=== PATIENT | female | born 1975 | race Caucasian/White ===

== ENCOUNTER 2019-02-09 03:30 | Inpatient (IN) | payer OTHER ==
[2019-02-09] MEDS ORDERED: ALBUTEROL/IPRATROPIUM (NEB) 3 ML AMP HHN (05:00)
[2019-02-09] MEDS ORDERED: LORAZEPAM 2 MG INJ IV (05:00)
[2019-02-09] MEDS ORDERED: NITROGLYCERIN (SL) 0.4 MG TAB SL (05:00)
[2019-02-09] MEDS ORDERED: DOCUSATE SODIUM 100 MG CAP PO (05:00)
[2019-02-09] MEDS ORDERED: NACL 0.9% 3 ML SYG IV (05:00)
[2019-02-09] MEDS ORDERED: hydrALAzine 20 MG INJ IV (05:00)
[2019-02-09] MEDS: PIPER-TAZO 3.375 GM IV (PMX) 100 ML IVPB (05:08)
[2019-02-09] MEDS: ACETAMINOPHEN 325 MG TAB PO (05:09)
[2019-02-09] MEDS: ONDANSETRON 4 MG INJ IV ×2 (05:09→16:25)
[2019-02-09] MEDS: SOD CHLORIDE 0.9% 1,000 ML IV ×3 (05:09→16:21)
[2019-02-09 06:45] LABS: LACTIC ACID 0.9 mmol/L (0.5-2.0)
[2019-02-09 07:21] LABS: FREE T4 (FREE THYROXINE) 0.85 ng/dl (0.64-1.79)
[2019-02-09 09:41] LABS: ADD MAN DIFF? NO
[2019-02-09] MEDS: HEPARIN 5,000 UNIT/1 ML VIAL SC ×2 (09:42→21:35)
[2019-02-09 09:47] LABS: WHITE BLOOD COUNT 15.2 10^3/ul (4.8-10.8)
[2019-02-09 09:47] LABS: BASOPHILS % 0.2 % (0.0-2.0); EOSINOPHILS # 0.1 10^3/ul (0.0-0.5); EOSINOPHILS % 0.5 % (0.0-7.0); HEMATOCRIT 36.5 % (37.0-47.0); HEMOGLOBIN 11.7 g/dl (12.0-16.0); LYMPHOCYTES # 1.7 10^3/ul (0.8-2.9); LYMPHOCYTES % 11.3 % (15.0-51.0); MEAN CORPUSCULAR HEMOGLOBIN 29.3 pg (29.0-33.0); MEAN CORPUSCULAR HGB CONC 32.1 g/dl (32.0-37.0); MEAN CORPUSCULAR VOLUME 91.5 fl (82.0-101.0); MEAN PLATELET VOLUME 10.3 fl (7.4-10.4); MONOCYTE # 0.8 10^3/ul (0.3-0.9); MONOCYTES % 5.3 % (0.0-11.0); NEUTROPHIL # 12.5 10^3/ul (1.6-7.5); NEUTROPHILS % 82.2 % (39.0-77.0); PLATELET COUNT 204 10^3/UL (140-415); RED BLOOD COUNT 3.99 10^6/ul (4.20-5.40); RED CELL DISTRIBUTION WIDTH 12.7 % (11.5-14.5)
[2019-02-09 10:02] LABS: ALANINE AMINOTRANSFERASE 26 IU/L (13-69); ALBUMIN 3.4 g/dl (3.3-4.9); ALBUMIN/GLOBULIN RATIO 1.17; ALKALINE PHOSPHATASE 45 IU/L (42-121); ANION GAP 7 (5-13); ASPARTATE AMINO TRANSFERASE 18 IU/L (15-46); BLOOD UREA NITROGEN 9 mg/dl (7-20); CARBON DIOXIDE 24 mmol/L (21-31); CHLORIDE 111 mmol/L (97-110); CREATININE 0.55 mg/dl (0.44-1.00); Estimated GFR > 60 mL/min (>60); GLUCOSE 92 mg/dl (70-220); POTASSIUM 3.9 mmol/L (3.5-5.1); SODIUM 142 mmol/L (135-144); TOTAL PROTEIN 6.3 g/dl (6.1-8.1)
[2019-02-09] MEDS: DEXTROSE 5%-0.45% NACL 1,000 ML IV (10:48)
[2019-02-09] MEDS: CEFEPIME 1GM/50 ML (PMX) 50 ML IVPB ×2 (10:49→21:34)
[2019-02-09] MEDS: HYDROCODONE/APAP (5/325) TAB PO (10:55)
[2019-02-09 12:24] LABS: ADD UMIC YES; UR ASCORBIC ACID NEGATIVE (NEGATIVE); UR BILIRUBIN (Dip) NEGATIVE (NEGATIVE); UR BLOOD (Dip) 1+ mg/dL (NEGATIVE); UR CLARITY SLIGHTLY CLOUDY (CLEAR); UR COLOR AMBER (YELLOW); UR GLUCOSE (Dip) NEGATIVE (NEGATIVE); UR KETONES (Dip) NEGATIVE (NEGATIVE); UR LEUKOCYTE ESTERASE (Dip) 2+ Leu/ul (NEGATIVE); UR NITRITE (Dip) NEGATIVE (NEGATIVE); UR RBC 56 /HPF (0-5); UR SPECIFIC GRAVITY (Dip) 1.041 (1.003-1.030); UR SQUAMOUS EPITHELIAL CELL MODERATE /HPF (FEW); UR TOTAL PROTEIN (Dip) 2+ mg/dl (NEGATIVE); UR UROBILINOGEN (Dip) 2+ mg/dL (NEGATIVE); UR WBC > 182 /HPF (0-5)
[2019-02-09 15:22] LABS: ADD UMIC YES; UR ASCORBIC ACID NEGATIVE (NEGATIVE); UR BACTERIA FEW /HPF (NONE SEEN); UR BILIRUBIN (Dip) NEGATIVE (NEGATIVE); UR BLOOD (Dip) 1+ mg/dL (NEGATIVE); UR CLARITY SLIGHTLY CLOUDY (CLEAR); UR COLOR YELLOW (YELLOW); UR GLUCOSE (Dip) NEGATIVE (NEGATIVE); UR KETONES (Dip) TRACE mg/dL (NEGATIVE); UR LEUKOCYTE ESTERASE (Dip) 3+ Leu/ul (NEGATIVE); UR MUCUS FEW /HPF (NONE SEEN); UR NITRITE (Dip) NEGATIVE (NEGATIVE); UR RBC 14 /HPF (0-5); UR SPECIFIC GRAVITY (Dip) 1.028 (1.003-1.030); UR SQUAMOUS EPITHELIAL CELL MODERATE /HPF (FEW); UR TOTAL PROTEIN (Dip) NEGATIVE (NEGATIVE); UR UROBILINOGEN (Dip) 2+ mg/dL (NEGATIVE); UR WBC 120 /HPF (0-5)
[2019-02-10] MEDS: SOD CHLORIDE 0.9% 1,000 ML IV ×4 (00:19→23:11)
[2019-02-10 05:37] LABS: ADD MAN DIFF? NO
[2019-02-10 05:46] LABS: BASOPHILS % 0.4 % (0.0-2.0); EOSINOPHILS # 0.1 10^3/ul (0.0-0.5); EOSINOPHILS % 1.3 % (0.0-7.0); HEMATOCRIT 33.3 % (37.0-47.0); HEMOGLOBIN 10.9 g/dl (12.0-16.0); LYMPHOCYTES # 1.9 10^3/ul (0.8-2.9); LYMPHOCYTES % 18.2 % (15.0-51.0); MEAN CORPUSCULAR HEMOGLOBIN 30.3 pg (29.0-33.0); MEAN CORPUSCULAR HGB CONC 32.7 g/dl (32.0-37.0); MEAN CORPUSCULAR VOLUME 92.5 fl (82.0-101.0); MEAN PLATELET VOLUME 10.3 fl (7.4-10.4); MONOCYTE # 0.5 10^3/ul (0.3-0.9); NEUTROPHIL # 7.7 10^3/ul (1.6-7.5); NEUTROPHILS % 74.6 % (39.0-77.0); PLATELET COUNT 180 10^3/UL (140-415); RED CELL DISTRIBUTION WIDTH 12.6 % (11.5-14.5)
[2019-02-10 05:46] LABS: WHITE BLOOD COUNT 10.3 10^3/ul (4.8-10.8)
[2019-02-10 06:13] LABS: ANION GAP 7 (5-13); BLOOD UREA NITROGEN 9 mg/dl (7-20); CALCIUM 7.9 mg/dl (8.4-10.2); CARBON DIOXIDE 23 mmol/L (21-31); CHLORIDE 109 mmol/L (97-110); CHOL/HDL RATIO 3.9 RATIO; CHOLESTEROL 161 mg/dl (100-200); CREATININE 0.64 mg/dl (0.44-1.00); Estimated GFR > 60 mL/min (>60); GLUCOSE 94 mg/dl (70-220); HDL CHOLESTEROL 41 mg/dl (34-88); LDL CHOLESTEROL,CALCULATED 81 mg/dl; MAGNESIUM 1.8 mg/dl (1.7-2.5); PHOSPHORUS 2.8 mg/dl (2.5-4.9); POTASSIUM 3.8 mmol/L (3.5-5.1); SODIUM 139 mmol/L (135-144); TRIGLYCERIDES 193 mg/dl (0-149)
[2019-02-10 07:08] LABS: HEMOGLOBIN A1C 5.7 % (0-5.9)
[2019-02-10] MEDS: MAGNESIUM HYDROXIDE 30ML CUP PO (09:16)
[2019-02-10] MEDS: HEPARIN 5,000 UNIT/1 ML VIAL SC ×2 (09:17→21:52)
[2019-02-10] MEDS: CEFEPIME 1GM/50 ML (PMX) 50 ML IVPB (09:17)
[2019-02-10] MEDS: ACETAMINOPHEN 325 MG TAB PO ×2 (10:36→21:46)
[2019-02-10] MEDS: ONDANSETRON 4 MG INJ IV (10:36)
[2019-02-10] MEDS: LEVOFLOXACIN 500MG/D5W (PMX) 100 ML IVPB (14:12)
[2019-02-11 05:36] LABS: ADD MAN DIFF? NO
[2019-02-11 05:44] LABS: BASOPHILS % 0.4 % (0.0-2.0); EOSINOPHILS # 0.1 10^3/ul (0.0-0.5); EOSINOPHILS % 0.7 % (0.0-7.0); HEMATOCRIT 34.3 % (37.0-47.0); LYMPHOCYTES # 2.1 10^3/ul (0.8-2.9); LYMPHOCYTES % 25.2 % (15.0-51.0); MEAN CORPUSCULAR HEMOGLOBIN 29.3 pg (29.0-33.0); MEAN CORPUSCULAR HGB CONC 32.1 g/dl (32.0-37.0); MEAN CORPUSCULAR VOLUME 91.5 fl (82.0-101.0); MEAN PLATELET VOLUME 10.5 fl (7.4-10.4); MONOCYTE # 0.6 10^3/ul (0.3-0.9); MONOCYTES % 7.6 % (0.0-11.0); NEUTROPHIL # 5.4 10^3/ul (1.6-7.5); NEUTROPHILS % 65.6 % (39.0-77.0); PLATELET COUNT 223 10^3/UL (140-415); RED BLOOD COUNT 3.75 10^6/ul (4.20-5.40); RED CELL DISTRIBUTION WIDTH 12.1 % (11.5-14.5)
[2019-02-11 05:44] LABS: WHITE BLOOD COUNT 8.2 10^3/ul (4.8-10.8)
[2019-02-11 06:11] LABS: ANION GAP 9 (5-13); BLOOD UREA NITROGEN 8 mg/dl (7-20); CALCIUM 8.7 mg/dl (8.4-10.2); CARBON DIOXIDE 24 mmol/L (21-31); CHLORIDE 109 mmol/L (97-110); CREATININE 0.59 mg/dl (0.44-1.00); Estimated GFR > 60 mL/min (>60); GLUCOSE 100 mg/dl (70-220); POTASSIUM 3.9 mmol/L (3.5-5.1); SODIUM 142 mmol/L (135-144)
[2019-02-11 06:51] LABS: MAGNESIUM 2.2 mg/dl (1.7-2.5)
[2019-02-11 06:51] LABS: PHOSPHORUS 4.1 mg/dl (2.5-4.9)
[2019-02-11] MEDS: SOD CHLORIDE 0.9% 1,000 ML IV ×3 (09:06→09:12)
[2019-02-11] MEDS: HEPARIN 5,000 UNIT/1 ML VIAL SC ×2 (09:09→21:19)
[2019-02-11] MEDS: morphine 2 MG INJ IV (15:15)
[2019-02-11] MEDS: LEVOFLOXACIN 500MG/D5W (PMX) 100 ML IVPB (15:19)
[2019-02-11] MEDS ORDERED: BISACODYL 10 MG SUPP PR (16:00)
[2019-02-11] MEDS: MAGNESIUM HYDROXIDE 30ML CUP PO (16:38)
[2019-02-11] MEDS: ACETAMINOPHEN 325 MG TAB PO (23:13)
[2019-02-12] MEDS: LEVOFLOXACIN 500 MG TAB PO (05:42)
[2019-02-12 05:52] LABS: ADD MAN DIFF? NO
[2019-02-12 05:59] LABS: BASOPHILS % 0.6 % (0.0-2.0); EOSINOPHILS # 0.1 10^3/ul (0.0-0.5); EOSINOPHILS % 2.2 % (0.0-7.0); HEMATOCRIT 35.3 % (37.0-47.0); HEMOGLOBIN 11.4 g/dl (12.0-16.0); LYMPHOCYTES # 2.2 10^3/ul (0.8-2.9); LYMPHOCYTES % 40.9 % (15.0-51.0); MEAN CORPUSCULAR HEMOGLOBIN 29.3 pg (29.0-33.0); MEAN CORPUSCULAR HGB CONC 32.3 g/dl (32.0-37.0); MEAN CORPUSCULAR VOLUME 90.7 fl (82.0-101.0); MEAN PLATELET VOLUME 10.1 fl (7.4-10.4); MONOCYTE # 0.4 10^3/ul (0.3-0.9); MONOCYTES % 7.9 % (0.0-11.0); NEUTROPHIL # 2.6 10^3/ul (1.6-7.5); NEUTROPHILS % 47.7 % (39.0-77.0); PLATELET COUNT 258 10^3/UL (140-415); RED BLOOD COUNT 3.89 10^6/ul (4.20-5.40); RED CELL DISTRIBUTION WIDTH 12.3 % (11.5-14.5)
[2019-02-12 05:59] LABS: WHITE BLOOD COUNT 5.5 10^3/ul (4.8-10.8)
[2019-02-12 06:41] LABS: PHOSPHORUS 4.5 mg/dl (2.5-4.9)
[2019-02-12 06:41] LABS: ANION GAP 7 (5-13); BLOOD UREA NITROGEN 11 mg/dl (7-20); CALCIUM 8.8 mg/dl (8.4-10.2); CARBON DIOXIDE 26 mmol/L (21-31); CHLORIDE 106 mmol/L (97-110); Estimated GFR > 60 mL/min (>60); GLUCOSE 104 mg/dl (70-220); MAGNESIUM 2.2 mg/dl (1.7-2.5); POTASSIUM 4.3 mmol/L (3.5-5.1); SODIUM 139 mmol/L (135-144)
[2019-02-12] MEDS: ACETAMINOPHEN 325 MG TAB PO (06:57)
[2019-02-12] MEDS: HEPARIN 5,000 UNIT/1 ML VIAL SC (09:09)
== END 2019-02-12 15:10 | disposition home or self-care (01) | DRG 872 ==
LOC: PP2 03:30
PROVIDERS: Hospitalist
DX: A41.9 Sepsis, unspecified organism (principal); N39.0 Urinary tract infection, site not specified; I10 Essential (primary) hypertension; Q51.9 Congenital malformation of uterus and cervix, unspecified; Z90.49 Acquired absence of other specified parts of digestive tract
CPT/HCPCS: 72196; 80048; 80053; 80061; 81001; 83036; 83605; 83735; 84100; 84439; 84443; 85025; 87040-91; 87086